=== PATIENT | male | born 1960 | race Two or more races ===

== ENCOUNTER 2019-03-15 21:31 | Emergency (ER) | payer OTHER ==
[~2019-03-15] VITALS: Ht 172.7 cm; Wt 77.1 kg
== END 2019-03-15 22:49 | disposition home or self-care (01) ==
LOC: ER 21:31
DX: J02.9 Acute pharyngitis, unspecified (principal)

== ENCOUNTER 2021-01-18 12:45 | Emergency (ER) | payer OTHER ==
[~2021-01-18] VITALS: Ht 172.7 cm; Wt 73.9 kg
== END 2021-01-18 18:43 | disposition home or self-care (01) ==
LOC: ER 12:45
DX: T18.198A Other foreign object in esophagus causing other injury, initial encounter (principal); X58.XXXA Exposure to other specified factors, initial encounter; Y93.89 Activity, other specified; Y92.89 Other specified places as the place of occurrence of the external cause; Y99.8 Other external cause status

== ENCOUNTER → 2025-02-21 | Emergency (ER) | payer OTHER ==
[~2025-02-21] VITALS: Ht 172.7 cm; Wt 69.9 kg
[~2025-02-21] MED LIST: 0.9 % SODIUM CHLORIDE 500 ML IV ONE; FAMOTIDINE/PF 20 MG/2 ML VIAL IV PUSH STA; MECLIZINE HCL25 MG PO; PROMETHAZINE HCL 50 MG/ML AMPUL IM STA; SINVASTATIN; SYNTHROID50 MCG PO
[2025-02-21 02:13] LABS: BASO % 0.4 % (0.1-1.2); EOS # 0.18 (0.04-0.54); EOS % 1.2 % (0.7-7.0); LYMPH # 1.20 (1.18-3.74); LYMPH % 8.2 % (19.3-53.1); MEAN PLATELET VOLUME 9.10 fl (9.4-12.4); MONO # 0.95 (0.24-0.82); MONO % 6.5 % (4.7-12.5); NEUT # 12.14 (1.56-6.13); NEUT % 83.4 % (34.0-71.1); RED CELL DISTRIBUTION WIDTH 12.5 % (11.6-14.4)
[2025-02-21 02:47] LABS: BUN CREA RATIO 12.0 (7.0-25.0); CREATININE SERUM 1.24 mg/dL (0.70-1.30); GFR 59.07; GLUCOSE FASTING 109.0 mg/dL (65-100); OSMOLALITY SERUM 285.0 MOSM/KG (275-295)
== END | disposition home or self-care (01) ==
LOC: ER 00:35
PROVIDERS: General Practice
DX: S09.8XXA Other specified injuries of head, initial encounter (principal); S89.82XA Other specified injuries of left lower leg, initial encounter; W19.XXXA Unspecified fall, initial encounter; Y93.89 Activity, other specified; Y92.89 Other specified places as the place of occurrence of the external cause; Y99.8 Other external cause status; R42 Dizziness and giddiness; Z91.013 Allergy to seafood